=== PATIENT | female | born 1950 | race Caucasian/White ===

== ENCOUNTER → 2017-07-09 08:19 | Outpatient (CLI) | payer MEDICARE | END | disposition home or self-care (01) | LOC: D.CT 08:19 | DX: R91.1 Solitary pulmonary nodule (principal); I71.2 Thoracic aortic aneurysm, without rupture ==

== ENCOUNTER → 2017-11-23 15:31 | Outpatient (CLI) | payer MEDICARE, MEDICAID | END | disposition home or self-care (01) | LOC: D.CT 15:31 | DX: I71.4 Abdominal aortic aneurysm, without rupture (principal) ==

== ENCOUNTER → 2018-02-05 16:57 | Outpatient (CLI) | payer MEDICARE, MEDICAID ==
[2018-02-05 18:47] LABS: CHOL - HDL RATIO 2.6 ratio (2.3-4.1); LDL-HDL RATIO 1.3 ratio (1.5-3.5)
== END | disposition home or self-care (01) ==
LOC: D.LABREF 16:57
PROVIDERS: Internal Medicine Cardiovascular Disease
DX: I25.10 Atherosclerotic heart disease of native coronary artery without angina pectoris (principal)

== ENCOUNTER → 2018-04-03 08:13 | Outpatient (CLI) | payer MEDICARE, MEDICAID | END | disposition home or self-care (01) | LOC: D.US 08:13 | DX: I25.10 Atherosclerotic heart disease of native coronary artery without angina pectoris (principal); I77.819 Aortic ectasia, unspecified site ==

== ENCOUNTER 2019-02-18 13:21 | Observation (INO) | payer MEDICARE ==
[~2019-02-18] VITALS: Ht 165.1 cm; Wt 114.1 kg
--- NOTE | ~2019-02-18 | HEMODYNAMI ---
PATIENT:DAON DAVIES MEDICAL RECORD: [id number] : 48 LOCATION[facility] [address] [id number] ADMISSION DATE: 02/18/19 Generatedon:02/19/201910:02 Patient name: DANO DAVIES Patient #: [id number] SSN: : 1950 Date of study: 02/19/2019 Page: Of Hemodynamic Procedure Report Patient Data Patient Demographics Procedure consent was obtained First Name: DANO Gender: Female Last Name: SAMSON : 1950 Middle Initial: A Age: 68 year(s) Patient #: [id number] Race: Unknown Additional ID: [id number] Contact details Address: [address] State: [place] City: [place] Zip code: [address] Past Medical History Allergies: No known allergies Admission Admission Data Admission Date: 02/18/2019 Admission Time: 17:11 Room #: D.[facility] [facility] Insurance Payor: Medicare [facility] #: [id number] Height (in.): 64.96 BSA: 2.18 (m2) Height (cm.): 165 BMI: 41.87 (kg/m2) Weight (lbs.): 251.33 Weight (kg.): 114 Lab Results Lab Result Date: 02/19/2019 Lab Result Time: 0:00 Biochemistry Name Units Result Min Max BUN mg/dl 17 --(---*)-- 7 18 Creatinine mg/dl 0.9 --(-*--)-- 0.6 1.3 eGFR ml/min 66 *-(----)-- 90 120 NONAFRICAN CBC Name Units Result Min Max Hematocrit % 36.5 *-(----)-- 42 54 Hemoglobin g/dl 11.9 *-(----)-- 13.5 17.5 Procedure Procedure Types Cath Procedure Diagnostic Procedure C [facility] w/Coronaries FFR/IVUS FFR Initial Sedation Charges Moderate Sedation up to 15 minutes Procedure Description Procedure Date Procedure Date: 02/19/2019 Procedure Start Time: 9:34 Procedure End Time: 10:02 Procedure Staff Name Function Speedy John MD Performing Physician Stew Weston RT Monitor Carmen Schmitz RT Scrub Merna Keenan RN Nurse Gómez Sheppard RT Business Services Vice President Procedure Data Cath Procedure Fluoroscopy Diagnostic fluoroscopy Total fluoroscopy Time: 9.9 time: 9.9 min min Diagnostic fluoroscopy Total fluoroscopy dose: dose: 1082 mGy 1082 mGy Contrast Material Contrast Material Type Amount (ml) Isovue 300 108 Entry Location Entry Primary Successful Side Size Upsize Upsize Entry Closure Gonzalez ccessful Closure Location (Fr) 1 (Fr) 2 (Fr) Remarks Device Remarks Radial Right 6 Fr Mechanical artery Short Compression Estimated blood loss: 5 ml Diagnostic catheters Device Type Used For End Catheter Placement DIAGNOSTIC [place] 110cm 5 Procedure Fr catheter ([id number]) Procedure Complications No complications Procedure Medications Medication Administration Route Dosage Oxygen etCO2 Nasal cannula 2 l/min Lidocaine 2% added to field 20 Heparin Flush Bag added to field 2 bags (1000units/500ml NS) 0.9% NaCl I.V. 100 ml/hr Radial Cocktail I.A. 1 syringe (Verapamil 2mg/Nitro 400mcg/Heparin 1500units) Versed I.V. 1 mg Fentanyl I.V. 50 mcg Versed I.V. 1 mg Versed I.V. 1 mg Fentanyl I.V. 50 mcg Fentanyl I.V. 50 mcg Versed I.V. 1 mg Fentanyl I.V. 50 mcg Hemodynamics Rest BSA: 2.18 (m2) HGB: 11.9 (g/dl) O2 Consumption: Estimated: 215.69 (ml/min) O2 Co nsumption indexed: Estimated:98.94 (ml/min/m) Heart Rate: 87 (bpm) Snapshots Pre Cath Intra NCS Post Cath Vital Signs Time Heart Resp SPO2 etCO2 NIBP (mmHg) Rhythm Pain Sedation Rate (ipm) (%) (mmHg) Status Level (bpm) 9:25:29 89 16 96 0 128/80(107) NSR 0 (11) 10(A) , No pain 9:29:53 81 20 94 42.8 108/70(94) NSR 0 (11) 10(A) , No pain 9:34:15 82 15 93 39.1 100/61(75) NSR 0 (11) 10(A) , No pain 9:38:29 86 14 94 41.3 75/59(70) NSR 0 (11) 10(A) , No pain 9:42:37 88 18 93 46.6 83/61(75) NSR 0 (11) 10(A) , No pain 9:46:45 88 12 94 48.1 103/71(81) NSR 0 (11) 10(A) , No pain 9:51:03 82 11 93 43.6 93/56(71) NSR 0 (11) 10(A) , No pain 9:55:21 82 18 92 46.6 96/54(73) NSR 0 (11) 10(A) , No pain 9:59:39 81 8 93 47.3 101/59(72) NSR 0 (11) 10(A) , No pain Medications Time Medication Route Dose Verified Delivered Reason Notes Effectiveness by by 9:30:09 Oxygen etCO2 2 l/min Speedy Bauman used for Nasal Alvaro Keenan RN procedure cannula 9:30:15 Lidocaine 2% added 20ml Speedy Speedy for local to vial Alvaro John MD anesthetic field 9:30:22 Heparin Flush added 2 bags Speedy Ruff used for Bag to Alvaro John MD procedure (1000units/500ml field NS) 9:30:31 0.9% NaCl I.V. 100 Speedy Bauman Per ml/hr Alvaro Keenan RN physician 9:32:32 Versed I.V. 1 mg Speedy Bauman for sedation Alvaro Keenan RN 9:32:38 Fentanyl I.V. 50 mcg Speedy Pickardie for sedation Alvaro Keenan RN 9:36:24 Radial Cocktail I.A. 1 Speedy Speedy for (Verapamil syringe Alvaro John MD vasodilation 2mg/Nitro 400mcg/Heparin 1500units) 9:37:48 Versed I.V. 1 mg Speedy Buffie for sedation Alvaro Keenan RN 9:37:54 Fentanyl I.V. 50 mcg Speedy Pickardie for sedation Alvaro Keenan RN 9:42:49 Versed I.V. 1 mg Speedy Buffie for sedation Alvaro Keenan RN 9:42:54 Fentanyl I.V. 50 mcg Speedy Bauman for sedation Alvaro Keenan RN 9:48:37 Versed I.V. 1 mg Speedy Bauman for sedation Alvaro Keenan RN 9:48:40 Fentanyl I.V. 50 mcg Speedy Bauman for sedation Alvaro Keenan RN Procedure Log Time Note 9:09:05 Procedure Status Urgent Heart Cath (IP). 9:09:08 Gómez Gutierrezley RT(R) sent for patient. Start room use. 9:: Time tracking: Regular hours (M-F 7:00 - 5:00) 9:09:12 Plan of Care:Hemodynamics will remain stable., Cardiac rhythm will remain stable., Comfort level will be maintained., Respiratory function will remain adequate., Patient/ family verbilizes understanding of procedure., Procedure tolerated without complication., Recovers from procedure without complications.. 9::14 Signed procedure consent form obtained from patient. 9:09:24 Patient allergic to No known allergies 9:: Lab Result : BUN 17 mg/dl 9:: Lab Result : Creatinine 0.9 mg/dl 9::57 Lab Result : eGFR NONAFRICAN 66 ml/min 9::57 Lab Result : Hemoglobin 11.9 g/dl 9::57 Lab Result : Hematocrit 36.5 % 9:10:05 Patient Weight : 251.33 lbs 9:10:10 Patient Height : 64.96 inches 9:12:01 Insurance Payor : Medicare 9:18:13 Patient received from Med II to CCL 1 Alert and oriented. Tansferred to table in Supine position. 9:18:15 Warm blankets applied, and august hugger turned on for patient comfort. 9:18:15 Correct patient and procedure confirmed by team. 9:18:16 ECG and BP/O2 sat monitors applied to patient. 9:24:08 Vital chart was started 9:24:09 Baseline sample Acquired. 9:24:14 Rhythm: sinus rhythm 9:27:24 Full Disclosure recording started 9:27:25 Pre-procedure instructions explained to patient. 9:27:26 Pre-op teaching completed and patient verbalized understanding. 9:27:27 Family in patients room. 9:27:28 Patient NPO since Midnight. 9:27:30 Is patient on blood thinner?Yes 9:27:38 PRE LOADED ON PLAVIX 9:27:40 Patient diabetic? No. 9:27:45 Previous problem with sedation/anesthesia? No ? 9:27:46 Snore? Yes 9:27:47 Sleep apnea? No 9:27:51 Deviated septum? No 9:27:51 Opens mouth fully? Yes 9:27:52 Sticks out tongue? Yes 9:27:54 Airway obstruction? No ? 9:27:56 Dentures? No OUT 9:28:00 Modified Andrea's test Ulnar < 7 seconds 9:28:02 Patient pain scale 0/10 ?. 9:28:06 IV patent on arrival in left forearm with 0.9% NaCl at [facility]. 9:28:09 Lab results completed and on chart. 9:28:34 Right Radial & Right Groin area was prepped with chlora-prep and draped in sterile fashion 9:28:35 Alarms reviewed by R. N. 9:28:36 Sharps counted by scrub and verified by R.N. 9:29:28 Use device set Radial Dx or PCI 9:29:30 ACIST Syringe (75848) opened to sterile field. 9:29:31 ACIST Hand Control (32963) opened to sterile field. 9:29:32 Bag Decanter (2002S) opened to sterile field. 9:29:33 ACIST Manifold (14580) opened to sterile field. 9:29:33 Tegaderm 4 x 4 (1626W) opened to sterile field. 9:29:35 Medline Cath Pack ([id number]) opened to sterile field. 9:29:35 MBrace Wrist Support ([id number]) opened to sterile field. 9:29:41 EMERALD Guide Wire (092-872) opened to sterile field. 9:29:42 SHEATH 6FR RAIN (5440332) opened to sterile field. 9:30:09 Oxygen 2 l/min etCO2 Nasal cannula was administered by Merna Keenan RN; used for procedure; 9:30:15 Lidocaine 2% 20ml vial added to field was administered by Speedy John MD; for local anesthetic; 9:30:22 Heparin Flush Bag (1000units/500ml NS) 2 bags added to field was administered by Speedy John MD; used for procedure; 9:30:31 0.9% NaCl 100 ml/hr I.V. was administered by Merna Keenan RN; Per physician; 9:31:20 --------ALL STOP TIME OUT------ 9:31:20 Final Timeout: patient, procedure, and site verified with staff and physician. All members of the team are in agreement. 9:31:21 Right Radial & Right Groin site verified by team. 9:31:25 Fire Safety Assessment: A--An alcohol-based skin anteseptic being used preoperatively., C--Open oxygen or nitrous oxide is being used., D--An ESU, laser, or fiber-optic light is being used. 9:31:29 Physical assessment completed. ASA score P 2 - A patient with mild systemic disease as per Speedy John MD. 9:31:34 2) 60-89 Mildly reduced kidney function, and other findings (as for stage 1) point to kidney disease. 9:31:37 Maximum allowable contrast dose (3.7 X eGFR X 0.75)173 ml. 9:31:41 Sedation plan: IV Moderate Sedation Medication:Versed, Fentanyl 9:32:32 Versed 1 mg I.V. was administered by Merna Keenan RN; for sedation; 9:32:38 Fentanyl 50 mcg I.V. was administered by Merna Keenan RN; for sedation; 9:34:41 Zero performed for pressure channel P1 9:34:44 Procedure started. 9:34:49 Local anesthetic to right radial artery with Lidocaine 2% by Speedy John MD.INITIAL ACCESS ONLY 9:35:42 A 6 Fr Short sheath was inserted into the Right Radial artery 9:36:15 A DIAGNOSTIC [place] 110cm 5 Fr catheter ([id number]) was advanced over the wire and used for Procedure. 9:36:24 Radial Cocktail (Verapamil 2mg/Nitro 400mcg/Heparin 1500units) 1 syringe I.A. was administered by Speedy John MD; for vasodilation; 9:37:48 Versed 1 mg I.V. was administered by Merna Keenan RN; for sedation; 9:37:54 Fentanyl 50 mcg I.V. was administered by Merna Keenan RN; for sedation; 9:39:24 GLIDE WIRE ANGLE 260cm (QH8780) opened to sterile field. 9:39:58 GLIDE WIRE ADVANCED TO CROSS THE VALVE 9:40:14 LV gram done using MENG 9:40:17 Injector settings: Ml/sec: 5, Volume: 15, 9:40:24 EF : 55 % 9:41:00 RCA angiography performed. 9:41:05 Catheter exchanged over wire. 9:41:57 UNABLE TO ENAGE LCA 9:41:59 GUIDE 6FR XBLAD 3.5 catheter ([id number]) opened to sterile field. 9:42:38 6 Fr XBLAD 3.5 guide catheter was inserted over the wire 9:42:49 Versed 1 mg I.V. was administered by Merna Keenan RN; for sedation; 9:42:54 Fentanyl 50 mcg I.V. was administered by Merna Keenan RN; for sedation; 9:45:08 LCA angiography performed. 9:45:38 Guide catheter removed. 9:46:17 AtriCurerata Plus pressure wire (09569L) opened to sterile field. 9:46:17 INFLATOR Merit BasixCompak (CY9633) opened to sterile field. 9:46:18 GUIDE 6FR AR 1.0 catheter ([id number]) opened to sterile field. 9:46:34 6 Fr AR 1 guide catheter was inserted over the wire 9:48:37 Versed 1 mg I.V. was administered by Merna Keenan RN; for sedation; 9:48:40 Fentanyl 50 mcg I.V. was administered by Merna Keenan RN; for sedation; 9:48:50 FFR/IFR wire advanced. 9:49:48 Wire advanced across lesion. 9:51:14 Wire removed. 9:51:14 Guide catheter removed. 9:51:45 Guide Catheter removed. unable to cannulate vessel. 9:53:07 GUIDE 6FR AR 2.0 catheter (OS4NM51) opened to sterile field. 9:53:12 6 Fr AR 2 guide catheter was inserted over the wire 9:53:44 FFR/IFR wire advanced. 9:55:38 Wire advanced across lesion. 9:55:50 mRCA lesion measured at .96 with IFR 9:55:59 Wire removed. 9:56:00 Guide catheter removed. 9:56:03 Procedure ended.(Physican Out) 9:56:14 ZEPHYR REGULAR TR BAND (188955) opened to sterile field. 9:57:06 Sheath removed intact; hemostasis achieved with Mechanical Compression to the Right Radial artery. 9:57:10 Fluoroscopy time 09.90 minutes. 9:57:13 Fluoroscopy dose: 1082 mGy 9:57:13 Flurop Dose total: 1082 9:57:18 Dose Area Product 84473 mGy/cm. 9:57:23 Contrast amount:Isovue 300 108ml. 9:57:25 Maximum allowable dose exceeded? No. 9:57:26 Sharps counted by scrub and verified by R.N. 9:57:28 [place] band inflated with 10cc of air. 9:57:31 Post-procedure physical assessment completed. ASA score P 2 - A patient with mild systemic disease as per Speedy John MD. 9:57:34 Post procedure rhythm: sinus rhythm 9:57:36 Estimated blood loss: 5 ml 9:57:37 Post procedure instruction explained to patient.Patient verbalizes understanding. 9:57:38 Patient needs reinforcement of post procedure teaching. 9:57:50 Procedure type changed to Cath procedure, Diagnostic procedure, LHC, LHC w/Coronaries, FFR/IVUS, FFR Initial, Sedation Charges, Moderate Sedation up to 15 minutes 9:58:05 Procedure and supply charges have been captured, reviewed, submitted and are correct. 9:58:08 Procedure Complication : No complications 10:02:13 Vital chart was stopped 10:02:13 See physician's report for complete and final results. 10:02:16 Report given to Med II. 10:02:18 Patient transfered to Med II with Bed. 10:02:20 Procedure ended. 10:02:20 Full Disclosure recording stopped 10:02:24 End room use (Document Last) Device Usage Item Name Manufacture Quantity Catalog Hospital Part Current Mini mal Lot# / Number Charge Number Stock Stock Serial# Code ACIST Acist 1 78677 639563 742082 787896 20 Syringe Medical (20131) Systems Inc ACIST Hand Acist 1 58785 665135 839634 841392 5 Control Medical (77225) Systems Inc Bag Microtek 1 800428 02192 806628 5 Decanter Medical Inc. () ACIST Acist 1 80820 427184 469795 250194 5 Manifold Medical (70103) Systems Inc Tegaderm 4 3M 1 1626W 634792 357065 774111 5 x 4 (1626W) Medline Medline 1 [id number] 183016 73298 694640 5 Cath Pack (HAUU20185) MBrace Advanced 1 140-0250-00 944837 49254 671927 5 Wrist Vascular Support Dynamics (124681532) EMERALD Cardinal 1 502-455 728355 363621 120699 5 Guide Wire Health (502455) SHEATH 6FR Cardinal 1 6887137 993073 5569032 940772 5 RAIN Health (8884935) DIAGNOSTIC Terumo 1 40-5013 941726 629138 571698 5 [place] 110cm 5 Fr catheter (664596) GLIDE WIRE Terumo 1 DQ4157 212477 396969 422494 5 ANGLE 260cm (NF5312) GUIDE 6FR Cardinal 1 06163358 071276 234671 323521 10 XBLAD 3.5 Health catheter (63457966) [place] 1 17372F 151378 [id number] 101124 5 Verrata Plus pressure wire (50316U) INFLATOR Merit 1 QT3512 552377 287845 648829 15 NLT SPINE Medical BasixCompak (PR7361) GUIDE 6FR Medtronic 1 PV5BD89 786410 62704 443956 1 AR 1.0 catheter (RN9ML87) GUIDE 6FR Medtronic 1 IL9DL49 572816 01426 976510 1 AR 2.0 catheter (BD6DT78) ZEPHYR Cardinal 1 472255 076826 4806291 817102 5 REGULAR TR Health BAND (011827) Signature Audit [place] Stage Time Signature Unsigned Intra-Procedure 02/19/2019 Carmen Schmitz 10:02:41 AM RT(R) Signatures Performing Physician : Signature : Speedy John MD Date : Time : Monitor : Stew Weston RT Signature : Date : Time : Nurse : Merna Keenan RN Signature : Date : Time : [place] [address] [place] [address]
[2019-02-18] MEDS ORDERED: TRAMADOL HCL E100 M1 PO (13:37)
[2019-02-18] MEDS ORDERED: CYMBALTA30 MG PO (13:37)
[2019-02-18 14:05] LABS: BASOPHILS 0.2 % (0-2); EOSINOPHILS 2.4 % (0-7); HEMOGLOBIN 11.9 g/dL (12-16); IMMATURE GRANULOCYTES 0.2 % (0-5); LYMPHOCYTES 28.4 % (15-50); MCH 30.2 pg (26.0-34.0); MCHC 32.2 g/dL (31.0-37.0); MCV 93.9 fL (80.0-100.0); MEAN PLATELET VOLUME 9.5 fL (7.4-10.4); MONOCYTES 7.5 % (2-11); NEUTROPHILS 61.3 % (40-80); PLATELET COUNT 241 10x3/uL (130-400); RBC 3.94 10x6/uL (4.00-5.40); RDW 14.6 % (11.5-14.5); WBC 9.7 10x3/uL (4.8-10.8)
[2019-02-18 14:13] LABS: ALBUMIN 3.1 g/dL (3.4-5.0); ALKALINE PHOSPHATASE 123 U/L (46-116); ALT (SGPT) 17 U/L (10-68); BILIRUBIN - TOTAL 0.29 mg/dL (0.2-1.3); CALC OSMOLALITY 286 mosm/kg (275-300); CALCIUM 8.6 mg/dL (8.5-10.1); CARBON DIOXIDE 32.2 mmol/L (21.0-32.0); CHLORIDE - SERUM 105 mmol/L (98-107); CREATININE - SERUM 0.8 mg/dL (0.6-1.3); GLUCOSE 87 mg/dL (74-106); POTASSIUM - SERUM 4.4 mmol/L (3.5-5.1); PROTEIN - SERUM 7.3 g/dL (6.4-8.2); SODIUM 143 mmol/L (136-145); UREA NITROGEN 20 mg/dL (7-18); eGFR NON AFRICAN AMERICAN 75 mL/min (90-120)
[2019-02-18 14:21] LABS: APTT 25.7 SECONDS (22.8-39.4); INR 0.93 (0.85-1.17)
[2019-02-18 14:23] LABS: CKMB 0.5 U/L (0.0-3.6); CREATINE KINASE 62 UL (21-215); TROPONIN-I < 0.017 ng/mL (0.000-0.060)
[2019-02-18 17:06] LABS: CKMB 0.6 U/L (0.0-3.6); CREATINE KINASE 63 UL (21-215)
[2019-02-18 17:11] LABS: TROPONIN-I < 0.017 ng/mL (0.000-0.060)
[2019-02-18 20:00] VITALS: BP 151/91
[2019-02-18] MEDS ORDERED: TOPROL XL25 MG (20:00)
[2019-02-18] MEDS ORDERED: NEURONTIN 300300 MG PO (20:01)
[2019-02-18] MEDS ORDERED: IBUPROFEN800 MG PO (20:02)
[2019-02-18] MEDS ORDERED: CRESTOR20 MG PO (20:02)
[2019-02-18 23:38] LABS: CKMB 0.4 U/L (0.0-3.6); CREATINE KINASE 61 UL (21-215); TROPONIN-I < 0.017 ng/mL (0.000-0.060)
[2019-02-19 00:41] VITALS: BP 114/73
[2019-02-19 01:16] VITALS: BP 151/91; BMI 41.8
[2019-02-19 03:45] VITALS: Ht 165.1 cm; Wt 114.1 kg
[2019-02-19 04:00] VITALS: BP 99/62
[2019-02-19 06:35] LABS: BASOPHILS 0.2 % (0-2); EOSINOPHILS 2.3 % (0-7); HEMATOCRIT 36.5 % (36.0-48.0); HEMOGLOBIN 11.9 g/dL (12-16); IMMATURE GRANULOCYTES 0.2 % (0-5); LYMPHOCYTES 28.4 % (15-50); MCH 30.3 pg (26.0-34.0); MCHC 32.6 g/dL (31.0-37.0); MCV 92.9 fL (80.0-100.0); MEAN PLATELET VOLUME 10.1 fL (7.4-10.4); MONOCYTES 9.5 % (2-11); NEUTROPHILS 59.4 % (40-80); PLATELET COUNT 274 10x3/uL (130-400); RBC 3.93 10x6/uL (4.00-5.40); RDW 14.8 % (11.5-14.5); WBC 8.9 10x3/uL (4.8-10.8)
[2019-02-19 07:20] LABS: ALBUMIN 3.3 g/dL (3.4-5.0); ALKALINE PHOSPHATASE 168 U/L (46-116); BILIRUBIN - TOTAL 0.45 mg/dL (0.2-1.3); CALC OSMOLALITY 289 mosm/kg (275-300); CALCIUM 8.8 mg/dL (8.5-10.1); CARBON DIOXIDE 30.2 mmol/L (21.0-32.0); CHLORIDE - SERUM 104 mmol/L (98-107); CKMB 0.7 U/L (0.0-3.6); CREATINE KINASE 67 UL (21-215); CREATININE - SERUM 0.9 mg/dL (0.6-1.3); GLUCOSE 113 mg/dL (74-106); POTASSIUM - SERUM 4.2 mmol/L (3.5-5.1); PROTEIN - SERUM 7.5 g/dL (6.4-8.2); SODIUM 144 mmol/L (136-145); TROPONIN-I < 0.017 ng/mL (0.000-0.060); UREA NITROGEN 17 mg/dL (7-18); eGFR NON AFRICAN AMERICAN 66 mL/min (90-120)
[2019-02-19 07:22] LABS: ALT (SGPT) 26 U/L (10-68)
[2019-02-19 08:20] VITALS: BP 111/59
[2019-02-19 11:38] VITALS: BP 90/54
[2019-02-19 14:03] VITALS: BP 115/77
--- NOTE | 2019-02-20 06:42 | MORECARE ---
CASE MANAGEMENT DISCHARGE SUMMARY PATIENT: DANO DAVIES UNIT: [id number] ADM DATE: 02/18/19 AGE: 68 : [birth year] SEX: F ROOM/BED: D.1830 AUTHOR: LIANNA ALVARENGA PHYSICIAN: REFERRING PHYSICIAN: NEHEMIAH ROCHA MD DATE OF SERVICE: 02/20/19 Discharge Plan Patient Name: DANO DAVIES Facility: [facility]:[place] : 1950 Planned Disposition: Home Anticipated Discharge Date: 02/19/19 Discharge Date: 02/19/2019 Expected LOS: 1 Initial Reviewer: [email or web address] Initial Review Date: 02/20/2019 Generated: 02/20/19 7:41 am Patient Name: DANO DAVIES Page [id number] at 0642 All edits/amendments must be made on the electronic document DICTATION DATE: 02/20/19640 FIRE OFFICIAL: PHUONG 02/20/19640 RPT#: [id number] DC DATE:02/19/19 STATUS: DIS IN [facility] [address] [place] [address] END OF REPORT
--- NOTE | 2019-02-26 14:31 | CN ---
PATIENT NAME:DANO CLAROS MEDICAL RECORD: [id number] : 48 LOCATION:D. D.2120 ADMIT DATE: 02/18/19 ACCOUNT: [id number] CONSULTING PHYSICIAN: WENDI ROGEL MD REFERRING PHYSICIAN: NEHEMIAH ROCHA MD DATE OF CONSULTATION: 02/19/2019 DIAGNOSES: 1. Unstable angina. 2. Coronary artery disease. 3. Hypertension. 4. Hyperlipidemia. 5. Bicuspid aortic valve. HISTORY OF PRESENT ILLNESS: Ms. Claros presents with 2 weeks of increasing angina. She is now at class IV rest pain. She has required morphine multiple times since admission along with sublingual nitro. She just took a sublingual nitro and morphine while I was interviewing her. She has had recurrent chest pain today, became very severe at a 9-10/10. She has had recurrent episodes of it since being in the hospital. She continues to have the pain. Her EKG is with no acute ST-T abnormalities. She was told approximately 5 years ago on a heart catheterization in [place] that she had 2 areas of stenosis up to 50% but no intervention was undertaken. She had done well until the past 2 weeks. She became very short of breath, began having recurrent episodes of chest discomfort requiring sublingual nitro. However, the chest discomfort became very severe and the sublingual nitro did not relieve it as it has been in the past 2 weeks. She has a history of hypertension. She is on Toprol. She does not know the dose. She has hyperlipidemia. She is on Crestor. She does not know her family history as she is adopted. She is a nonsmoker. PHYSICAL EXAMINATION: GENERAL APPEARANCE: Well nourished, well developed, appears stated age. Level of distress, comfortable. PSYCHIATRIC: Mental status, alert, normal affect. Orientation, oriented to time, place and person. EYES: Lids and conjunctiva, noninjected. No discharge, no pallor. ENT: Lips, teeth, gums, normal dentition. Oropharynx, no cyanosis, no pallor. NECK: Carotid arteries, bilateral normal upstroke, no bruits, no thrills. JUGULAR VEINS: No jugular venous pressure or distention. CERVICAL LYMPH NODES: Nontender, nonenlarged. THYROID: Not enlarged. Nontender. No nodules. LUNGS: Respiratory effort, unlabored. CHEST: Normal curvature. No thoracic deformity. No chest wall tenderness. Percussion, resonant. Auscultation, clear. No wheezes, no rales, no rhonchi. CARDIOVASCULAR: Precordial exam, nondisplaced. No heaves or pericardial thrills. Rate and rhythm, regular. Heart sounds, normal S1, normal S2. No S3, no gallop, no rub. Systolic murmur, not heard. Diastolic murmur, not heard. EXTREMITIES: No cyanosis, no edema. Peripheral pulses, full and equal in all extremities, except as noted. No bruits appreciated. ABDOMEN: Soft, nondistended. Normal aorta. No bruit. Nontender. No masses. Liver, nontender, no hepatomegaly. Spleen, nontender, no splenomegaly. MUSCULOSKELETAL: No joint tenderness. No joint swelling. No erythema. NEUROLOGICAL: Normal gait, normal strength, normal tone. SKIN: Warm and dry. CONSULT REPORT [id number] DANO CLAROS OVERALL IMPRESSION: Unstable angina, continued severe chest discomfort in a patient with a past history of coronary artery disease with up to 20% to 50% stenosis many years ago, most likely she has progressed that and has hemodynamically significant coronary artery disease. We will proceed with coronary angiography due to the continued chest pain and the severe nature of this. Further care depends upon findings of the angiography. TRANSINT:[id number] Voice Confirmation ID: [id number] DOCUMENT ID: [id number] WENDI ROGEL MD at 1431 CC: [id number] DICTATION DATE: 02/19/19343 HAND SCUDDER: 02/19/19 0408 DIS IN 02/19/19 [place] [address]
--- NOTE | 2019-02-26 14:31 | EC ---
PATIENT:DANO DAVIES DATE OF SERVICE: 02/18/19 SEX: F MEDICAL RECORD: [id number] DATE OF : [birth year] LOCATION:D.M2 D.212 AGE OF PATIENT: 68 ADMISSION DATE: 02/18/19 REFERRING PHYSICIAN: INTERPRETING PHYSICIAN: WENDI JOHN MD ECHOCARDIOGRAM REPORT ECHO CHARGES 4 ECHO COMPLETE Date: 02/19/19 CLINICAL DIAGNOSIS: CHEST PAIN ECHOCARDIOGRAPHIC MEASUREMENTS (adult normal given) AC root (d.<3.7cm) 3.3 cm LV Septum d (<1.2 cm> 1.3 cm Valve Excursion 1.7 cm LV Septum (systole) 1.4 cm Left Atria (s.<4.0cm> 3.8 cm LVPW d(<1.2cm) 1.6 cm RV (d.<2.3cm) 2.1 cm LVPW (sytole) 1.7 cm LV diastole(<5.6CM) 4.8 cm MV E-F(>70mm/sec) cm LV systole 3.6 cm LVOT Diameter 1.8 cm MV exc.(>10mm) cm Est.ejection fraction (50-75%) % DOPPLER: LVIT cm/sec A 71 cm/sec E 78 cm/sec LA cm/sec RVSP 22.0 mmHg LVOT 129 cm/sec AOP1/2T m/s Asc. Ao 216 cm/sec RVOT 85 cm/sec RA cm/sec PA 123 cm/sec AV Gradient Peak 18.6 mmHg AV Mean 1.8 mmHg AV Area 1.6 cm MV Gradient Peak 3.9 mmHg MV Mean 2.2 mmHg MV Area cm COMMENTS: Finish Production Manager: Esau PACHECO Fruit Or Nut Picker: 1 Dr. John TAPE# PACS Pericardial Effusion N DATE OF SERVICE: 02/19/2019 FINDINGS: 1. Left ventricular chamber size is within normal limits. Left ventricular systolic function is normal at 60%. 2. Left atrium, right atrium, and right ventricular chamber sizes are within normal limits. 3. Valvular structures: Aortic valve is bicuspid valve; however, there is no significant aortic stenosis. The remaining valvular structures have normal structure and motion. ECHOCARDIOGRAM REPORT [id number] DANO DAVIES 4. Doppler interrogation reveals no significant valvular insufficiency or stenosis. Pulmonary systolic pressure is normal, estimated at 22 mmHg. 5. No evidence of pericardial effusion or left ventricular thrombus. TRANSINT:[id number] Voice Confirmation ID: [id number] DOCUMENT ID: [id number] WENDI JOHN MD at 1431 CC: [id number] DICTATION DATE: 02/19/19 1544 DIRECTOR OF ACCOUNTING: 02/19/19 2255 DIS IN 02/19/19 [place] [address] [place] [id number]
--- NOTE | 2019-02-26 14:31 | OP ---
PATIENT NAME: DANO DAVIES MEDICAL RECORD: [id number] :48 LOCATION:D.M2 D.2120 ADMISSION DATE:02/18/19 SURGEON: WENDI ROGEL MD DATE OF OPERATION: 02/19/2019 PROCEDURES: 1. Left heart catheterization. 2. Selective coronary angiography. 3. Left ventriculogram. 4. IFR. INDICATION: Unstable angina, coronary artery disease, hypertension, and hyperlipidemia. PROCEDURE: After informed consent was obtained and after detailed explanation of risks, benefits as well as alternative therapies, the patient elected to proceed with angiogram and heart catheterization. The right radial area was prepped and draped in normal sterile fashion. Right radial artery was cannulated via modified Seldinger technique with placement of 6-Cypriot sheath. All catheters exchanged through this sheath. FINDINGS: Left ventriculogram was performed in a standard 30-degree MENG view, reveals good cardiac wall motion throughout all segments. Overall ejection fraction estimated 60%. SELECTIVE CORONARY ANGIOGRAPHY: 1. Left main has no significant angiographic disease. 2. Left anterior descending has moderate irregularities, but no flow-limiting stenosis. 3. The left circumflex has mild irregularities, but no flow-limiting stenosis. 4. The right coronary has a questionable stenosis in the mid vessel at approximately 50%-70%; however, IFR was normal. OVERALL IMPRESSION: Minimal coronary artery disease is present. No flow-limiting stenosis. Continue medical management of the coronary artery disease and cardiac risk factors. TRANSINT:[id number] Voice Confirmation ID: [id number] DOCUMENT ID: [id number] WENDI ROGEL MD at 1431 CC: [id number] DICTATION DATE: 02/19/19 1000 RETAIL BAKERY MANAGER: 02/19/19 1124 DIS IN 02/19/19 [facility] [address] [place] [address]
== END 2019-02-19 17:15 | disposition home or self-care (01) ==
LOC: D.ER 13:21 → OBSVTIME 17:11 → D.M2 17:11
PROVIDERS: Family Medicine; ADMIT Family Medicine Adult Medicine; ATTEND Family Medicine Adult Medicine
DX: I25.110 Atherosclerotic heart disease of native coronary artery with unstable angina pectoris (principal); I10 Essential (primary) hypertension; E78.5 Hyperlipidemia, unspecified

== ENCOUNTER 2019-03-12 15:44 | Outpatient (CLI) | payer MEDICARE ==
[2019-02-19 03:45] VITALS: BMI 41.8
[~2019-03-12 15:44] MED LIST: CRESTOR20 MG PO; CYMBALTA30 MG PO; IBUPROFEN800 MG PO; NEURONTIN 300300 MG PO; TOPROL XL25 MG; TRAMADOL HCL E100 M1 PO
== END 2019-03-12 23:59 | disposition home or self-care (01) ==
LOC: D.MAMMO 15:44
PROVIDERS: ATTEND Family Medicine Adult Medicine
DX: Z12.31 Encounter for screening mammogram for malignant neoplasm of breast (principal)

== ENCOUNTER → 2019-03-18 10:50 | Outpatient (CLI) | payer MEDICARE ==
[2019-02-19 03:45] VITALS: BMI 41.8
== END | disposition home or self-care (01) ==
LOC: D.CT 10:50
PROVIDERS: ATTEND Family Medicine Adult Medicine
DX: I71.2 Thoracic aortic aneurysm, without rupture (principal)

== ENCOUNTER → 2019-12-04 08:40 | Outpatient (CLI) | payer MEDICARE ==
[2019-02-19 03:45] VITALS: BMI 41.8
== END | disposition home or self-care (01) ==
LOC: D.HCCARDIO 08:40
PROVIDERS: ATTEND Internal Medicine Cardiovascular Disease
DX: I25.10 Atherosclerotic heart disease of native coronary artery without angina pectoris (principal)